=== PATIENT | female | born 1990 | race Two or more races ===

== ENCOUNTER 2024-09-24 21:50 | Emergency (ER) | payer SELFPAY ==
[~2024-09-24] VITALS: Ht 170.2 cm; Wt 85.0 kg
[2024-09-24] MEDS: TETANUS-DIPTH-ACEL PERTUSSIS 0.5ML SYR Tdap IM ONE (22:43)
[2024-09-24] MEDS: ACETAMINOPHEN 325 MG TAB PO ONE (22:43)
[2024-09-24 22:51] VITALS: BP 117/67; PULSE 70; RESP 17; TEMP 97.9; O2SAT 97
--- NOTE | 2024-09-24 22:54 | ED.PDOC ---
Musculoskeletal HPI Comments 34-year-old female presents to ER with complaints of right 5th finger pain x1 day. Patient reports that she sustained a crush injury to right 5th finger from an oven door at 6:35 p.m. prior to arrival to ER at work and has since been experiencing 8/10 pain with associated swelling/bruising and abrasion to right 5th finger. States she did take Tylenol for her pain with slight relief. Denies numbness/tingling, wrist pain or any further symptoms/complaints Chief Complaint: Upper Extremity Time Seen by MD: 21:53 Primary Care Provider: UNKNOWN Reviewed Notes: Nurses Notes, Medications, Allergies Home Meds Active Scripts Acetaminophen (Acetaminophen) 500 Mg Tab, 500 MG PO Q4HPRN, #30 TAB 0 Refills Prov:COY HUNT 09/24/24 Cephalexin Monohydrate (Cephalexin) 500 Mg Cap, 1 CAP PO BID for 7 Days, #14 CAP 0 Refills Prov:COY HUNT 09/24/24 Information Source: Patient Mode of Arrival: Ambulatory Past Medical History PAST MEDICAL HISTORY: Denies Surgical History: Denies all surgeries Family History Family History: Unknown Social History Smoker: Non-Smoker Alcohol: Denies ETOH Use Drugs: Denies Drug Use Lives In: Home Constitutional: denies: chills, diaphoresis, fatigue, fever, malaise, sweats, weakness, others EENTM: denies: blurred vision, double vision, ear bleeding, ear discharge, ear drainage, ear pain, ear ringing, eye pain, eye redness, hearing loss, mouth pain, mouth swelling, nasal discharge, nose bleeding, nose congestion, nose pain, photophobia, tearing, throat pain, throat swelling, voice changes, others Respiratory: denies: cough, hemoptysis, orthopnea, SOB at rest, shortness of breath, SOB with excertion, stridor, wheezing, others Cardiovascular: denies: chest pain, dizzy spells, diaphoresis, Dyspnea on exertion, edema, irregular heart beat, left arm pain, lightheadedness, palpitations, PND, syncope, others Gastrointestinal: denies: abdomen distended, abdominal pain, blood streaked bowels, constipated, diarrhea, dysphagia, difficulty swallowing, hematemesis, m maritza, nausea, poor appetite, poor fluid intake, rectal bleeding, rectal pain, vomiting, others Genitourinary: denies: abnormal vagina bleeding, burning, dyspareunia, dysuria, flank pain, frequency, hematuria, incontinence, pain, , vagina discharge, urgency, others Neurological: denies: dizziness, fainting, headache, left sided numbness, left sided weakness, numbness, paresthesia, pre-existing deficit, right sided numbness, right sided weakness, seizure, speech problems, tingling, tremors, weakness, others Musculoskeletal: reports: others (As stated in HPI) Integumetry: reports: others (As stated in HPI) Allergic/Immunocompromised: denies: Difficulty Healing, Frequent Infections, Hives, Itching, others Hematologic/Lymphatic: denies: anemia, blood clots, easy bleeding, easy bruising, swollen glands, others Endocrine: denies: excessive hunger, excessive sweating, excessive thirst, excessive urination, flushing, intolerance to cold, intolerance to heat, unexplained weight gain, unexplained weight loss, others Psychiatric: denies: anxiety, bipolar disorder, depression, hopeless, panic disorder, schizophrenia, sleepless, suicidal, others Physical Exam General Appearance: No Apparent Distress HEENT: PERRL/EOMI Neck: Full Range of Motion, Non-Tender, Normal Respiratory: Chest Non-Tender, Lungs Clear, No Accessory Muscle Use, No Respiratory Distress, Normal Breath Sounds Cardiovascular: No Murmur, No Gallop, Regular Rate/Rhythm Breast Exam: Deferred Gastrointestinal: NOT DONE Genitalia: Deferred Pelvic: Deferred Rectal: Deferred Extremities: Normal capillary refill, Normal range of motion Neurologic: Alert, No Motor Deficits, Normal Affect, Normal Mood, No Sensory Deficits Cerebellar Function: Normal Reflexes: Normal Skin: Dry, Warm, Other (TTP/mild swelling/ecchymosis in 1 cm abrasion noted to right 5th finger. No nailbed injury/deformity/further skin changes noted. Patient able to fully move all fingers right hand. Pulses intact) Peripheral Pulses: 2+ Radial (R), 2+ Radial (L), 2+ Brachial (R), 2+ Brachial (L) Lymphatic: No Adenopathy Was a procedure done? Was a procedure done?: No Sedation Sedation?: No Differential Diagnosis EXT Differential Diagnosis: Fracture, Dislocation, Neurovascular injury X-Ray, Labs, Meds, VS Vital Signs Date Time Temp Pulse Resp B/P (MAP) Pulse Ox O2 Delivery O2 Flow Rate FiO2 09/24/24 22:51 70 17 97 Room Air 09/24/24 22:51 97.9 70 17 117/67 (84) 97 97.9 09/24/24 21:53 98.0 77 16 112/67 96 98.0 Current Medications Medications (Trade) Dose Ordered Sig/Adama Route Start Time Stop Time Status Last Admin Diphtheria/ Tetanus/Acell Pertussis (Boostrix T-Dap) 0.5 ml ONCE ONCE IM 09/24/24 22:30 09/24/24 22:31 DC 09/24/24 22:43 Acetaminophen (Tylenol Tablet) 650 mg ONCE ONCE PO 09/24/24 22:30 09/24/24 22:31 DC 09/24/24 22:43 PATIENT: YUDY ESQUIVEL ACCT: [id number] UNIT: [id number] : 1990 LOC: ER ROOM / BED: / AGE / SEX: 34 / F ADM STATUS: REG ER SERVICE 21 ORDERING PHYSICIAN: COY HUNT PROCEDURE(s): RFIN5 - R 5TH FINGER XRAY REASON: RIGHT 5TH FINGER PAIN ORDER NUMBER(s): [id number], ACCESSION NUMBER(s): [id number] EXAMINATIONS: 3 views of the right hand - 5th digit CLINICAL HISTORY: RIGHT 5TH FINGER PAIN COMPARISON: None Findings and impression: No grossly displaced fractures, dislocations or bony destructive changes are evident on the provided views. No sizable, radiopaque foreign bodies noted. If the patient has continued symptoms clinically suspicious for radiographically occult fracture, follow-up radiographs could be obtained in 7-10 days time. ATED BY: ELLIS BERKOWITZ MD DICTATED DATE/TIME: 09/24/242346 SIGNED BY: ELLIS BERKOWITZ MD SIGNED DATE/TIME: 09/24/242346 CC: T-dap 0.5 mL IM ordered Tylenol 650 mg p.o. ordered Right 5th finger x-ray reviewed Patient neurovascularly intact and reported improvement in symptoms prior to discharge Workman's comp paperwork filled out Advised to follow up with PCP and workman's comp PCP in 1-2 days Patient verbalized understanding and agreeable with current plan of care Advised to return to ER immediately if symptoms worsen Images Reviewed?: Images reviewed and evaluated by me Time of 1ST Reevaluation: 23:02 Reevaluation 1ST: N/A Patient Education/Counseling: Diagnosis, Treatment, Prognosis, Need For Follow Up Family Education/Counseling: Diagnosis, Treatment, Prognosis, Need For Follow Up Departure 1 Departure Time of Disposition: 23:22 Impression: Primary Impression: Contusion of finger of right hand Qualified Codes: S60.051A - Contusion of right little finger without damage to nail, initial encounter Additional Impression: Abrasion of finger of right hand Qualified Codes: S60.419A - Abrasion of unspecified finger, initial encounter Disposition: HOME / SELF CARE / HOMELESS Condition: Stable e-Prescriptions Acetaminophen (Acetaminophen) 500 Mg Tab 500 MG PO Q4HPRN, #30 TAB 0 Refills Prov: COY HUNT 09/24/24 Cephalexin Monohydrate (Cephalexin) 500 Mg Cap 1 CAP PO BID for 7 Days, #14 CAP 0 Refills Prov: COY HUNT 09/24/24 Discharged With: Significant Other Critical Care Note Critical Care Time?: No Stability Stability form required: No Heart Score Heart Score: Heart Score Response (Comments) Value History N/A 0 EKG N/A 0 Age N/A 0 Risk Factors N/A 0 Troponin N/A 0 Total 0 COY HUNT Sep 24, 2024 22:54
[2024-09-24] MEDS ORDERED: CEPH500C PO (23:24)
[2024-09-24] MEDS ORDERED: ACET500T58 PO (23:24)
--- NOTE | 2024-09-24 23:50 | DVH ---
EXAMINATIONS: 3 views of the right hand - 5th digit CLINICAL HISTORY: RIGHT 5TH FINGER PAIN COMPARISON: None Findings and impression: No grossly displaced fractures, dislocations or bony destructive changes are evident on the provided views. No sizable, radiopaque foreign bodies noted. If the patient has continued symptoms clinically suspicious for radiographically occult fracture, fol low-up radiographs could be obtained in 7-10 days time.
== END 2024-09-25 00:10 | disposition home or self-care (01) ==
LOC: ER 21:50
DX: S60.051A Contusion of right little finger without damage to nail, initial encounter (principal); S60.416A Abrasion of right little finger, initial encounter; W23.1XXA Caught, crushed, jammed, or pinched between stationary objects, initial encounter; Y93.89 Activity, other specified; Y92.89 Other specified places as the place of occurrence of the external cause; Y99.8 Other external cause status
CPT/HCPCS: 73140; 90471; 90715